=== PATIENT | male | born 1985 | race Two or more races ===

== ENCOUNTER 2020-11-14 12:54 | Emergency (ER) | payer SELFPAY ==
--- NOTE | ~2020-11-14 | XR_ITS ---
EXAMINATION: XR KNEE, RIGHT CLINICAL INFORMATION: Pain COMPARISON: None TECHNIQUE: Four views of the right knee. FINDINGS: No fracture or dislocation. No suprapatellar joint effusion. Joint spaces are well-maintained. Prominent enthesophytes off the superior patella. No focal soft tissue swelling of the anterior knee. XR/XR knee RT 3V IMPRESSION: Mild degenerative changes of the right knee.
[2020-11-14 14:19] VITALS: BP 121/81; PULSE 98; RESP 12; TEMP 36.6; O2SAT 99; BMI 34.0
--- NOTE | 2020-11-14 15:19 | ED_ITS ---
HPI - Extremity Injury (Lower) General Chief Complaint: Extremity Injury, Lower Stated Complaint: R LEG INJ Time Seen by Provider: 11/14/20 15:19 Source: patient Mode of arrival: ambulatory Limitations: no limitations History of Present Illness HPI Narrative: 35-year-old male came in for evaluation of right knee pain. Right knee pain for the past 3 days, after he jumped of the a back bed of his truck about 4 ft height, patient felt pop in his right knee, the pain is progressively getting worse, able to ambulate with limping. Review of Systems Review of Systems: All other systems are reviewed and are negative Constitutional: Reports as per HPI and Reports no additional constitutional complaints Eyes: Reports as per HPI and Reports no additional eye complaints Reports system reviewed and no additional complaints, except as documented Cardiovascular: Reports as per HPI and Reports no additional cardiovascular comp laints Respiratory: Reports as per HPI and Reports no additional respiratory complaints Gastrointestinal: Reports as per HPI and Reports no additional gastrointestinal complaints Genitourinary: Reports no additional female genitourinary complaints Musculoskeletal: Reports no additional musculoskeletal complaints Skin/Breast: Reports system reviewed and no additional complaints, except as docu Psychiatric: Reports no additional psychiatric complaints Endocrine: Reports no additional endocrine complaints Hematologic/Lymphatic: Reports no additional hematologic/lymphatic complaints Allergic/Immunologic: Reports no additional allergic/immunologic complaints Reports system reviewed and no additional complaints, except as documented and Reports Abnormal speech present [facility] Social History Social History Advance Directives: No Advance Directives Information Provided: No Physical Exam Vital Signs: Vital Signs: Last Vital Signs Temp 98 F 11/14/20 14:19 Pulse 98 11/14/20 14:19 Resp 12 11/14/20 14:19 BP 121/81 11/14/20 14:19 Pulse Ox 99 11/14/20 14:19 Body Mass Index 34.0 Vital signs have been reviewed as appeared to be correct. Blood pressure normal. Heart rate normal. Respiration rate normal. Temperature normal. Oxygen saturation normal. Appearance: Alert. Oriented X3. No acute distress. Head: Normal external exam. Normocephalic. Atraumatic. No Shi signs noted. No raccoon eyes noted Eyes: PERRLA. EOMI. Conjunctiva and sclera normal. Eyelids normal. ENT: TM's Normal. Pharynx normal. Uvula midline. Moist mucous membranes. No tr ismus noted. No drooling noted. No muffled voice noted. Neck: Normal inspection. Neck supple. FROM. No adenopathy. Thyroid Normal. No meningeal signs. No neck mass noted. CVS: Normal heart rate and rhythm. Heart sound normal. No murmurs noted. Pulses normal throughout. Respiratory: No respiratory distress. Painless inspiration. Breath sounds normal. No wheezes/rales/rhonchi noted. Chest nontender. No accessory muscle usage noted or decreased air movement noted. Abdomen: Soft and nontender. Bowel sounds normal in all 4 quadrants. No distention noted. No organomegaly noted. No visible injury noted. Back: No CVA tenderness. Full range of motion noted. Skin: Skin warm and dry. Normal skin color. Normal skin turgor. No rashes/lesions/lacerations noted. Extremities: No lower extremity edema. Extremities exhibit normal range of motion. Extremities nontender. Neuro: Oriented X 3. No motor deficit. No sensory deficit. Reflexes normal. Course Course Course Narrative: 35-year-old male with recent right knee injury. X-ray show early degenerative changes with no acute fracture, started knee immobilization, ice, crutches, follow up with Ortho. MDM - Extremity Injury (Lower) Imaging Data Right knee x-ray: Radiologist's impression: Mild degenerative changes of the right knee. Discharge Plan Discharge Clinical Impression: Knee sprain Qualifiers: Encounter type: initial encounter Involved ligament of knee: unspecified ligament Laterality: right Qualified Code(s): S83.91XA - Sprain of unspecified site of right knee, initial encounter Patient Disposition: Home, Self-Care Instructions: Knee Sprain (ED) Referrals: Donte Duarte MD [Physician] - 2 days Stand Alone Forms: Work/School Release
[2020-11-14] MEDS: Ibuprofen 800 MG TABLET PO (15:41)
== END 2020-11-14 15:44 | disposition home or self-care (01) ==
PROVIDERS: Emergency Provider Emergency Medicine
DX: S83.91XA Sprain of unspecified site of right knee, initial encounter (principal); W17.89XA Other fall from one level to another, initial encounter; Y93.89 Activity, other specified; Y92.812 Truck as the place of occurrence of the external cause; Y99.9 Unspecified external cause status
CPT/HCPCS: 73562; 99283; 99284